=== PATIENT | female | born 1990 | race Caucasian/White ===

== ENCOUNTER 2017-10-15 13:46 | Emergency (ER) | payer OTHER ==
[~2017-10-15] VITALS: Ht 149.9 cm; Wt 52.7 kg
[~2017-10-15 13:46] MED LIST: FERR-72 PO
[2017-10-15] MEDS ORDERED: IBUPROFEN 800 MG TABLET PO ONE (14:30)
[2017-10-15] MEDS ORDERED: BACITRACIN 0.9 GM PACKET OINTMENT TP ONE (15:15)
[2017-10-15 15:24] VITALS: BP 122/71
== END 2017-10-15 15:35 | disposition home or self-care (01) ==
LOC: EMS 13:46
DX: S91.312A Laceration without foreign body, left foot, initial encounter (principal); F17.210 Nicotine dependence, cigarettes, uncomplicated; W20.8XXA Other cause of strike by thrown, projected or falling object, initial encounter; Y93.89 Activity, other specified; Y92.89 Other specified places as the place of occurrence of the external cause; Y99.8 Other external cause status
CPT/HCPCS: 99284

== ENCOUNTER 2019-04-23 20:38 | Emergency (ER) | payer OTHER ==
[~2019-04-23] VITALS: Ht 149.9 cm; Wt 55.9 kg
[2019-04-23] MEDS ORDERED: PERTUSS(ACELL),DIPH,TET VAC/PF 0.5 ML VIAL IM ONE (22:00)
[2019-04-23] MEDS ORDERED: FAMOTIDINE 20 MG TABLET PO ONE (22:00)
[2019-04-23] MEDS ORDERED: DiphenhydrAMINE HCL 50 MG CAPSULE PO ONE (22:00)
[2019-04-23] MEDS ORDERED: DEXAMETHASONE SOD PHOS 4 MG/ML 5 ML VIAL IM ONE (22:00)
[2019-04-23 22:16] VITALS: BP 119/87
== END 2019-04-23 22:35 | disposition home or self-care (01) ==
LOC: EMS 20:41
DX: S81.851A Open bite, right lower leg, initial encounter (principal); S81.852A Open bite, left lower leg, initial encounter; S80.12XA Contusion of left lower leg, initial encounter; S80.11XA Contusion of right lower leg, initial encounter; F17.210 Nicotine dependence, cigarettes, uncomplicated; W54.0XXA Bitten by dog, initial encounter; Y93.89 Activity, other specified; Y92.89 Other specified places as the place of occurrence of the external cause; Y99.8 Other external cause status
CPT/HCPCS: 90471; 90715

== ENCOUNTER 2022-11-08 22:02 | Emergency (ER) | payer OTHER ==
[~2022-11-08] VITALS: Ht 149.9 cm; Wt 56.8 kg
[2022-11-08 22:42] VITALS: TEMP 98.2
[2022-11-09] MEDS ORDERED: IBUPROFEN 600 MG TABLET PO ONE (03:45)
[2022-11-09] MEDS ORDERED: IBUP-1492 PO (03:46)
[2022-11-09 04:12] VITALS: BP 110/72; PULSE 78; RESP 16
== END 2022-11-09 05:16 | disposition home or self-care (01) ==
LOC: EMS 22:03
DX: S10.93XA Contusion of unspecified part of neck, initial encounter (principal); S00.83XA Contusion of other part of head, initial encounter; F17.210 Nicotine dependence, cigarettes, uncomplicated; Z98.890 Other specified postprocedural states; Y04.0XXA Assault by unarmed brawl or fight, initial encounter; Y93.89 Activity, other specified; Y92.89 Other specified places as the place of occurrence of the external cause; Y99.8 Other external cause status
CPT/HCPCS: 70450; 70486; 70490; 72125; 99284